=== PATIENT | male | born 1975 | race Caucasian/White ===

== ENCOUNTER 2017-01-08 12:34 | Emergency (ER) | payer SELFPAY ==
[2017-01-08 12:36] VITALS: BP 167/82; PULSE 101; RESP 17; TEMP 97.7; O2SAT 99
--- NOTE | 2017-01-08 13:21 | PD ---
Physical Exam Date Seen by Provider: Jan 08, 2017 Time Seen by Provider: 13:20 Narrative 41-year-old male presents to emergency department with right lower quadrant pain , and "sweating". Patient denies nausea, vomiting, or diarrhea. He denies dysuria. Patient has history of kidney stones and still has his appendix. Protocol is ordered including CBC, CMP, lipase, and abdominal CT without IV contrast. Vital signs are stable. Patient is awaiting med bed placement. Data Data Last Documented VS Vital Signs Date Time Temp Pulse Resp B/P (MAP) Pulse Ox O2 Delivery O2 Flow Rate FiO2 01/08/17 12:36 97.7 101 17 167/82 (110) 99 Orders Orders Complete Blood Count With Diff (01/08/17 13:14) Comprehensive Metabolic Panel (01/08/17 13:14) Lipase (01/08/17 13:14) Ct Abd/Pel W/O Iv Contrast (01/08/17 13:14) MDM Medical Record Reviewed: Yes Supervised Visit with KEIRA: Yes Condition: Stable Joe Ruth Jan 08, 2017 13:21
[2017-01-08] MEDS ORDERED: ONDANSETRON HCL 4 MG/2 ML VIAL IV PUSH ONE (13:30)
[2017-01-08] MEDS ORDERED: SODIUM CHLOR 0.9% 1000 ML INJ 1,000 ML IV ONE (13:30)
[2017-01-08] MEDS ORDERED: MORPHINE SULFATE 4 MG/ML INJ IV PUSH ONE (13:30)
--- NOTE | 2017-01-08 13:35 | PD ---
HPI Chief Complaint: GI Complaint Time Seen by Provider: 13:26 Travel History International Travel<30 days: No Contact w/Intl Traveler<30days: No Traveled to known affect area: No History of Present Illness HPI Patient is a 41-year-old male presenting to emergency evaluation of right lower back, flank pain which radiates to the right groin. Patient states his pain is 9 out of 10, it started this morning. He also reports urinary frequency and urgency. He denies any nausea, vomiting, fever, chills, shortness of breath or chest pain. He denies any history of kidney stones but states he has a family history. Family member is at bedside and is translating although patient appears to understand [place]. They offered formal interpretation services and declined. [facility] Past Medical History Medical History: Denies Significant Hx Tetanus Vaccination: Unknown Past Surgical History Surgical History: Unable to Obtain Social History Alcohol Use: No Tobacco Use: Yes Substance Use: No Allergies-Medications (Allergen,Severity, Reaction): Coded Allergies: No Known Allergies (Unverified , 01/08/17) Reported Meds & Prescriptions Reported Meds & Active Scripts Active No Active Prescriptions or Reported Medications Review of Systems Except as stated in HPI: all other systems reviewed are Neg Genitourinary: Positive: Urgency, Frequency, Pelvic Pain, Flank Pain Musculoskeletal: Positive: Pain Physical Exam Narrative GENERAL: Overweight, well-developed, alert male. Appears uncomfortable, in no acute distress. SKIN: Warm and dry. HEAD: Atraumatic. Normocephalic. EYES: Pupils equal and round. No scleral icterus. No injection or drainage. ENT: No nasal bleeding or discharge. Mucous membranes pink and moist. NECK: Trachea midline. No JVD. CARDIOVASCULAR: Regular rate and rhythm. RESPIRATORY: No accessory muscle use. Clear to auscultation. Breath sounds equal bilaterally. GASTROINTESTINAL: Abdomen soft, non-tender, nondistended. Hepatic and splenic margins not palpable. Positive bowel sounds, no rebound, no guarding. MUSCULOSKELETAL: Extremities without clubbing, cyanosis, or edema. No obvious deformities. Positive CVAT on the right NEUROLOGICAL: Awake and alert. No obvious cranial nerve deficits. Motor grossly within normal limits. Five out of 5 muscle strength in the arms and legs. Normal speech. PSYCHIATRIC: Appropriate mood and affect; insight and judgment normal. Data Data Last Documented VS Vital Signs Date Time Temp Pulse Resp B/P (MAP) Pulse Ox O2 Delivery O2 Flow Rate FiO2 01/08/17 12:36 97.7 101 17 167/82 (110) 99 Orders Orders Complete Blood Count With Diff (01/08/17 13:14) Comprehensive Metabolic Panel (01/08/17 13:14) Lipase (01/08/17 13:14) Ct Abd/Pel W/O Iv Contrast (01/08/17 13:14) Urinalysis - C+S If Indicated (01/08/17 13:25) Iv Access Insert/Monitor (01/08/17 13:25) Morphine Inj (Morphine Inj) (01/08/17 13:30) Sodium Chlor 0.9% 1000 Ml Inj (Ns 1000 M (01/08/17 13:30) Ondansetron Inj (Zofran Inj) (01/08/17 13:30) Labs Laboratory Tests Test 01/08/17 12:50 White Blood Count 22.7 TH/MM3 Red Blood Count 4.94 MIL/MM3 Hemoglobin 14.6 GM/DL Hematocrit 44.4 % Mean Corpuscular Volume 89.9 FL Mean Corpuscular Hemoglobin 29.5 PG Mean Corpuscular Hemoglobin Concent 32.8 % Red Cell Distribution Width 13.0 % Platelet Count 282 TH/MM3 Mean Platelet Volume 9.1 FL Neutrophils (%) (Auto) 85.6 % Lymphocytes (%) (Auto) 9.6 % Monocytes (%) (Auto) 4.2 % Eosinophils (%) (Auto) 0.2 % Basophils (%) (Auto) 0.4 % Neutrophils # (Auto) 19.4 TH/MM3 Lymphocytes # (Auto) 2.2 TH/MM3 Monocytes # (Auto) 1.0 TH/MM3 Eosinophils # (Auto) 0.1 TH/MM3 Basophils # (Auto) 0.1 TH/MM3 CBC Comment DIFF FINAL Differential Comment Urine Color YELLOW Urine Turbidity CLOUDY Urine pH 5.0 Urine Specific [place] 1.029 Urine Protein TRACE mg/dL Urine Glucose (UA) NEG mg/dL Urine Ketones NEG mg/dL Urine Occult Blood SMALL Urine Nitrite NEG Urine Bilirubin NEG Urine Urobilinogen LESS THAN 2.0 MG/DL Urine Leukocyte Esterase NEG Urine RBC 3 /hpf Urine Amorphous Sediment OCC Urine Bacteria RARE /hpf Urine Mucus FEW /lpf Microscopic Urinalysis Comment CULT NOT INDICATED Blood Urea Nitrogen 18 MG/DL Creatinine 0.91 MG/DL Random Glucose 128 MG/DL Total Protein 7.8 GM/DL Albumin 4.2 GM/DL Calcium Level 8.8 MG/DL Alkaline Phosphatase 68 U/L Aspartate Amino Transf (AST/SGOT) 17 U/L Alanine Aminotransferase (ALT/SGPT) 39 U/L Total Bilirubin 0.3 MG/DL Sodium Level 135 MEQ/L Potassium Level 4.2 MEQ/L Chloride Level 106 MEQ/L Carbon Dioxide Level 22.5 MEQ/L Anion Gap 7 MEQ/L Estimat Glomerular Filtration Rate 92 ML/MIN Lipase 80 U/L MDM Medical Decision Making Medical Screen Exam Complete: Yes Emergency Medical Condition: Yes Interpretation(s) Laboratory Tests Test 01/08/17 12:50 White Blood Count 22.7 TH/MM3 Red Blood Count 4.94 MIL/MM3 Hemoglobin 14.6 GM/DL Hematocrit 44.4 % Mean Corpuscular Volume 89.9 FL Mean Corpuscular Hemoglobin 29.5 PG Mean Corpuscular Hemoglobin Concent 32.8 % Red Cell Distribution Width 13.0 % Platelet Count 282 TH/MM3 Mean Platelet Volume 9.1 FL Neutrophils (%) (Auto) 85.6 % Lymphocytes (%) (Auto) 9.6 % Monocytes (%) (Auto) 4.2 % Eosinophils (%) (Auto) 0.2 % Basophils (%) (Auto) 0.4 % Neutrophils # (Auto) 19.4 TH/MM3 Lymphocytes # (Auto) 2.2 TH/MM3 Monocytes # (Auto) 1.0 TH/MM3 Eosinophils # (Auto) 0.1 TH/MM3 Basophils # (Auto) 0.1 TH/MM3 CBC Comment DIFF FINAL Differential Comment Urine Color YELLOW Urine Turbidity CLOUDY Urine pH 5.0 Urine Specific [place] 1.029 Urine Protein TRACE mg/dL Urine Glucose (UA) NEG mg/dL Urine Ketones NEG mg/dL Urine Occult Blood SMALL Urine Nitrite NEG Urine Bilirubin NEG Urine Urobilinogen LESS THAN 2.0 MG/DL Urine Leukocyte Esterase NEG Urine RBC 3 /hpf Urine Amorphous Sediment OCC Urine Bacteria RARE /hpf Urine Mucus FEW /lpf Microscopic Urinalysis Comment CULT NOT INDICATED Blood Urea Nitrogen 18 MG/DL Creatinine 0.91 MG/DL Random Glucose 128 MG/DL Total Protein 7.8 GM/DL Albumin 4.2 GM/DL Calcium Level 8.8 MG/DL Alkaline Phosphatase 68 U/L Aspartate Amino Transf (AST/SGOT) 17 U/L Alanine Aminotransferase (ALT/SGPT) 39 U/L Total Bilirubin 0.3 MG/DL Sodium Level 135 MEQ/L Potassium Level 4.2 MEQ/L Chloride Level 106 MEQ/L Carbon Dioxide Level 22.5 MEQ/L Anion Gap 7 MEQ/L Estimat Glomerular Filtration Rate 92 ML/MIN Lipase 80 U/L Vital Signs Date Time Temp Pulse Resp B/P (MAP) Pulse Ox O2 Delivery O2 Flow Rate FiO2 01/08/17 12:36 97.7 101 17 167/82 (110) 99 Differential Diagnosis UTI versus pyelonephritis versus kidney stone versus muscle strain versus muscle spasm versus other Narrative Course Patient is a 41-year-old male presenting to emergency for evaluation of right flank pain. Patient's vital signs are stable, labs and imaging ordered and pending. IV access established. CBC with a white count of 22.7 with left shift Chemistry reviewed, no acute findings identified Urinalysis with small occult blood, rare bacteria, mucus. No reflex culture pending CT scan the abdomen and pelvis that was read by the radiologist shows a 2 mm stone at the right UVJ with resulting hydroureter and mild pelvocaliectasis of the right renal collecting system. 2.2 cm gallstone, appendix is normal Patient be given dose of IV antibiotics now, as discussed with Dr. Ramirez. He'll be discharged home with a prescription for ciprofloxacin. He is encouraged to maintain adequate fluid intake, follow up with a primary doctor. He was advised to return to emergency department for any new or worsening symptoms. Patient verbalized understanding of instructions. Patient is stable for discharge. Diagnosis Primary Impression: Kidney stone on right side Referrals: [facility] Primary Care Physician Patient Instructions: General Instructions, Kidney Stones (ED) Additional Instructions: Complete full course of antibiotics as prescribed Increase fluid intake Not drive or operate machinery while taking narcotic pain medication Follow-up with your primary doctor Return to emergency department for any new or worsening symptoms Med/Other Pt SpecificInfo: Prescription(s) given Scripts Tamsulosin (Flomax) 0.4 Mg Cap 0.4 MG PO HS for Manage Prostate Problems, #10 CAP 0 Refills Prov: Tona Hernandez 01/08/17 Oxycodone-Acetaminophen (Percocet) 5-325 mg Tab 1 TAB PO Q4H Y for PAIN, #12 TAB 0 Refills Prov: Tona Hernandez 01/08/17 Ciprofloxacin (Ciprofloxacin) 500 Mg Tab 500 MG PO BID for Infection, #14 TAB 0 Refills Prov: Tona Hernandez 01/08/17 Disposition: 01 DISCHARGE HOME Condition: Stable Tona Hernandez Jan 08, 2017 13:35
[2017-01-08 13:45] LABS: AUTOMATED NEUTROPHIL # 19.4 TH/MM3 (1.8-7.7); BASOPHIL # 0.1 TH/MM3 (0-0.2); BASOPHIL % 0.4 % (0.0-2.0); EOSINOPHIL # 0.1 TH/MM3 (0-0.4); EOSINOPHIL % 0.2 % (0.0-4.0); HEMATOCRIT 44.4 % (39.0-51.0); HEMO FLAGS DIFF FINAL; LYMPH % 9.6 % (9.0-44.0); LYMPHOCYTE # 2.2 TH/MM3 (1.0-4.8); MEAN CELL VOLUME 89.9 FL (80.0-100.0); MEAN CORPUSCULAR HEMOGLOBIN 29.5 PG (27.0-34.0); MEAN CORPUSCULAR HGB CONC 32.8 % (32.0-36.0); MONO % 4.2 % (0.0-8.0); NEUT % 85.6 % (16.0-70.0); PLATELET COUNT 282 TH/MM3 (150-450); RED BLOOD COUNT 4.94 MIL/MM3 (4.50-5.90); WHITE BLOOD COUNT 22.7 TH/MM3 (4.0-11.0)
[2017-01-08 14:09] LABS: ALT (GPT) 39 U/L (12-78); ANION GAP 7 MEQ/L (5-15); AST (GOT) 17 U/L (15-37); BICARBONATE 22.5 MEQ/L (21.0-32.0); BLOOD UREA NITROGEN 18 MG/DL (7-18); CHLORIDE 106 MEQ/L (98-107); GLOMERULAR FILTRATION RATE 92 ML/MIN (>89); POTASSIUM 4.2 MEQ/L (3.5-5.1); SODIUM (NA) 135 MEQ/L (136-145)
[2017-01-08 14:11] LABS: ALKALINE PHOSPHATASE 68 U/L (45-117); TOTAL BILIRUBIN ADULT 0.3 MG/DL (0.2-1.0)
[2017-01-08 14:29] LABS: BACTERIA, URINE RARE /hpf; BLOOD, URINE SMALL (NEG); COMMENT (UR) CULT NOT INDICATED; CULTURE IF INDICATED CULT NOT INDICATED; GLUCOSE,URINE NEG (NEG); KETONE, URINE NEG (NEG); MUCUS URINE FEW /lpf (OCC); NITRITE,URINE NEG (NEG); URINE COLOR YELLOW (YELLW/STRAW)
--- NOTE | 2017-01-08 15:06 | RADRPT ---
EXAM DATE/TIME: 01/08/2017 14:37 [place] COMPARISON: No previous studies available for comparison. INDICATIONS : Right lower quadrant pain ORAL CONTRAST: No oral contrast ingested. RADIATION DOSE: 10.47 CTDIvol (mGy) MEDICAL HISTORY : None SURGICAL HISTORY : None. ENCOUNTER: Initial ACUITY: 1 day PAIN SCALE: 7/10 LOCATION: Right lower quadrant TECHNIQUE: Volumetric scanning of the abdomen and pelvis was performed. Using automated exposure control and ad justment of the mA and/or kV according to patient size, radiation dose was kept as low as reasonably achievable to obtain optimal diagnostic quality images. DICOM format image data is available electro nically for review and comparison. FINDINGS: LOWER LUNGS: The visualized lower lungs are clear. LIVER: Homogeneous density without lesion. There is no dilation of the biliary tree. I believe there is a f aintly rim calcified 2.2 cm gallstone in the region of the gallbladder neck SPLEEN: Normal size without lesion. PANCREAS: Within normal limits. KIDNEYS: Left kidney is radiographically normal. The right shows mild pelvocaliectasis and hydroureter. I brittany erin this is due to a 2 mm stone at the UVJ. ADRENAL GLANDS: Within normal limits. VASCULAR: There is no aortic aneurysm. BOWEL/MESENTERY: The stomach, small bowel, and colon demonstrate no acute abnormality. There is no free intraperitone al air or fluid. The vermiform appendix is identified and is radiographically normal. ABDOMINAL WALL: Within normal limits. RETROPERITONEUM: There is no lymphadenopathy. BLADDER: No wall thickening or mass. REPRODUCTIVE: Within normal limits. INGUINAL: There is no lymphadenopathy or hernia. MUSCULOSKELETAL: Within normal limits for patient age. CONCLUSION: 1. I believe patient's symptoms are due to a 2 mm stone at the right UVJ with resulting hydroureter a nd mild pelvocaliectasis of the right renal collecting system. 2. Faintly rim calcified 2.2 cm gallstone. 3. Appendix is radiographically normal Juan Miguel Smith MD on January 08, 2017 at 15:00 Board Certified Radiologist. This report was verified electronically.
[2017-01-08] MEDS ORDERED: CIPROFLOXACIN 400 MG PREMIX 200 ML IV ONE (15:15)
[2017-01-08] MEDS ORDERED: CIPR500T2 PO (15:19)
[2017-01-08] MEDS ORDERED: PERC5TAB12 PO (15:19)
[2017-01-08] MEDS ORDERED: TAMS5CAP PO (15:19)
[2017-01-08] MEDS ORDERED: KETOROLAC TROMETHAMINE 30 MG/ML (IVP) VIAL IV PUSH ONE (15:30)
== END 2017-01-08 16:31 | disposition home or self-care (01) ==
LOC: NEPD 12:34
DX: N20.0 Calculus of kidney (principal); Z72.0 Tobacco use
CPT/HCPCS: 74176; 80053; 81001; 83690; 85025; 96361; 96365; 96375; 99285; J0744; J1885; J2270; J2405; J7030